=== PATIENT | male | born 1955 | race Hispanic/Latino ===

== ENCOUNTER 2017-12-19 13:39 | Inpatient (IN) | payer SELFPAY ==
[2017-12-19] MEDS ORDERED: D50W 25 GM/50 ML SYRINGE IV ONE ×5 (13:51→21:23)
[2017-12-19] MEDS ORDERED: D5 0.45 NS 1,000 ML IV ONE (14:03)
--- NOTE | 2017-12-19 14:50 | EKG ---
Test Date: 2017-12-19 Test Time: 14:02:51 Deputy Director Of Public Works: BAIRON MEASUREMENT RESULTS: Intervals: Rate: 98 WA: 174 QRSD: 132 QT: 396 QTc: 505 [place]: P: 62 WA: 174 QRS: 48 T: 46 INTERPRETIVE STATEMENTS: Normal sinus rhythm Right bundle branch block Abnormal ECG No previous ECG available for comparison Electronically Signed On 12-19-17 14:50:03 CDT by Virgil Landis
[2017-12-19 15:11] LABS: Absolute Lymphocytes (CBC) 0.9 K/uL (0.7-4.9); Absolute Monocytes 0.8 K/uL (0.1-1.3); Absolute Neutrophil 12.2 K/uL (1.8-8.0); Basophils % 0.2 % (0-1.3); Eosinophils % 0.1 % (0-4.4); Hematocrit 33.6 % (39.6-49.0); Lymphocytes % 6.6 % (15.3-44.8); MCH 28.4 pg (27.0-35.0); MCV 84.4 fL (80-100); MPV 11.4 fL (7.6-11.3); Monocytes % 5.4 % (3.3-12.3); RBC Red Blood Cell Count 3.98 M/uL (4.33-5.43)
[2017-12-19 15:28] LABS: Potassium 4.1 mmol/L (3.5-5.1)
[2017-12-19] MEDS ORDERED: ACETAMINOPHEN 500 MG TAB PO PRN (15:32)
[2017-12-19] MEDS ORDERED: ONDANSETRON 4 MG/2 ML VIAL IV PRN (15:32)
[2017-12-19] MEDS ORDERED: DEXTROSE 50% IV SCH (16:00)
[2017-12-19] MEDS ORDERED: D5 0.45 NS 1,000 ML IV SCH (16:00)
[2017-12-19] MEDS ORDERED: WATER IV SCH (16:00)
[2017-12-19] MEDS ORDERED: [UNRECOGNIZED DRUG - OTHER] IV SCH (16:00)
[2017-12-19] MEDS ORDERED: NA CHLORIDE IV SCH (16:00)
[2017-12-19] MEDS ORDERED: NA CHLORIDE 0.9% IV SCH (16:00)
[2017-12-19] MEDS ORDERED: NA CHLORIDE 0.9% 1,000 ML ONE (16:01)
--- NOTE | 2017-12-19 16:01 | EDPHYS ---
Physician Documentation [facility] Name: Leeroy Morrison Age: 62 yrs Sex: Male : 1955 Arrival Date: 12/19/2017 Time: 13:44 Bed 3 Private MD: Out, [facility] ED Physician Rory Nieves HPI: 12/19 16:05 This 62 yrs old Male presents to ER via Ambulatory with complaints of BLOOD gs SUGAR PROBLEM. 16:05 The patient or guardian reports hypoglycemia. Onset: The symptoms/episode gs began/occurred just prior to arrival. Associated signs and symptoms: Pertinent positives: nausea. Current symptoms: In the emergency department the patient's symptoms are unchanged from the initial presentation. The patient has not experienced similar symptoms in the past. The patient has not recently seen a physician. Historical: - Allergies: 13:55 No Known Allergies; hj - Home Meds: 13:55 lisinopril 10 mg Oral tab 1 tab once daily [Active]; glyburide-metformin 5-500 mg oral hj tab 1 tab 2 times per day [Active]; - PMHx: 13:55 Diabetes - NIDDM; Hypertension; hj - PSHx: 13:55 Unable to obtain; hj - Immunization history:: Adult Immunizations up to date. - Social history:: Patient/guardian denies using alcohol, street drugs, IV drugs, tobacco products, Smoking status: Patient/guardian denies using tobacco, never smoked. - Ebola Screening: : Patient negative for fever greater than or equal to 101.5 degrees Fahrenheit, and additional compatible Ebola Virus Disease symptoms Patient denies exposure to infectious person Patient denies travel to an Ebola-affected area in the 21 days before illness onset No symptoms or risks identified at this time. ROS: 16:05 All other systems are negative. gs Exam: 16:05 Head/Face: Normocephalic, atraumatic. Eyes: Pupils equal round and reactive to light, gs extra-ocular motions intact. Lids and lashes normal. Conjunctiva and sclera are non-icteric and not injected. Cornea within normal limits. Periorbital areas with no swelling, redness, or edema. 16:05 ENT: Nares patent. No nasal discharge, no septal abnormalities noted. Tympanic membranes are normal and external auditory canals are clear. Oropharynx with no redness, swelling, or masses, exudates, or evidence of obstruction, uvula midline. Mucous membranes moist. Neck: Trachea midline, no thyromegaly or masses palpated, and no cervical lymphadenopathy. Supple, full range of motion without nuchal rigidity, or vertebral point tenderness. No Meningismus. Chest/axilla: Normal chest wall appearance and motion. Nontender with no deformity. No lesions are appreciated. Cardiovascular: Regular rate and rhythm with a normal S1 and S2. No gallops, murmurs, or rubs. Normal PMI, no JVD. No pulse deficits. Respiratory: Lungs have equal breath sounds bilaterally, clear to auscultation and percussion. No rales, rhonchi or wheezes noted. No increased work of breathing, no retractions or nasal flaring. Abdomen/GI: Soft, non-tender, with normal bowel sounds. No distension or tympany. No guarding or rebound. No evidence of tenderness throughout. Back: No spinal tenderness. No costovertebral tenderness. Full range of motion. Skin: Warm, dry with normal turgor. Normal color with no rashes, no lesions, and no evidence of cellulitis. MS/ Extremity: Pulses equal, no cyanosis. Neurovascular intact. Full, normal range of motion. 16:05 Constitutional: The patient appears alert, awake. 16:05 Constitutional: The patient appears lethargic. 16:05 Neuro: Orientation: Not oriented to place, time, situation, Cranial nerves: CN II- XII are normal as tested, Motor: moves all fours. Vital Signs: 13:59 Pulse 97; Resp 16 S; Pulse Ox 98% on R/A; iw 15:21 BP 164 / 93; Pulse 102; Resp 18 S; Pulse Ox 98% on R/A; iw 15:22 BP 163 / 93 Sitting; Pulse 102; Resp 20; Pulse Ox 98% on R/A; ae1 16:11 BP 129 / 82 Sitting; Pulse 98 MON; Resp 20 S; Pulse Ox 99% on R/A; sm4 16:44 Temp 98(O); ae1 16:56 BP 128 / 77; Pulse 98 MON; Resp 20 S; Pulse Ox 99% on R/A; Pain 0/10; sm4 18:24 BP 152 / 89; Pulse 100; Resp 19; Pulse Ox 97% on R/A; aj 19:30 BP 139 / 92; Pulse 92; Resp 18; Temp 98.0; Pulse Ox 98% ; Pain 0/10; ea 20:00 BP 143 / 85; Pulse 97; Resp 18; Temp 97.6; Pulse Ox 98% ; Pain 0/10; ea MDM: 13:56 Patient medically screened. 16:05 Differential diagnosis: hypoglycemic episode, renal failure, dehydration, cva. Data reviewed: vital signs, nurses notes. Response to treatment: the patient's symptoms have markedly improved after treatment, and as a result, I will admit patient. 16:05 ED course: spoke to marley and dr jensen will see and admit. 12/19 13:57 Order name: Basic Metabolic Panel; Complete Time: 15:35 12/19 13:57 Order name: CBC with Diff; Complete Time: 15:18 12/19 13:57 Order name: Troponin (emerg Dept Use Only); Complete Time: 15:52 12/19 15:01 Order name: Glucose, Ancillary Testing; Complete Time: 15:18 [facility] 12/19 15:09 Order name: Glucose; Complete Time: 15:58 [facility] 12/19 15:11 Order name: Glucose, Ancillary Testing; Complete Time: 15:18 [facility] 12/19 15:11 Order name: Glucose, Ancillary Testing; Complete Time: 15:18 [facility] 12/19 16:04 Order name: Urine Creatinine 12/19 16:04 Order name: Urine Sodium Random 12/19 16:04 Order name: Urine Potassium Random 12/19 16:04 Order name: Urine For Protein, Random 12/19 16:39 Order name: Glucose [facility] 12/19 17:11 Order name: Glucose Level [facility] 12/19 20:57 Order name: Urine Dipstick--Ancillary (enter results) ut 12/19 13:57 Order name: EKG; Complete Time: 13:58 12/19 13:57 Order name: Cardiac monitoring; Complete Time: 14:14 12/19 13:57 Order name: EKG - Nurse/Tech; Complete Time: 14:14 12/19 13:57 Order name: IV Saline Lock; Complete Time: 14:14 12/19 13:57 Order name: Labs collected and sent; Complete Time: 19:10 12/19 13:57 Order name: O2 Per Protocol; Complete Time: 14:14 12/19 13:57 Order name: O2 Sat Monitoring; Complete Time: 14:14 12/19 14:07 Order name: Diet Ada 1800 Bobby; Complete Time: 14:07 12/19 16:04 Order name: US Rp Exam Complete 12/19 17:25 Order name: US EDMS 12/19 13:57 Order name: Urine Dipstick-Ancillary (obtain specimen) 12/19 14:07 Order name: Fingerstick Glucose: q 30 minutes Administered Medications: Discontinued: D5-NS 1000 ml IV at 125 ml/hr continuous 13:50 Drug: D50W 50 ml Route: IVP; Site: right jugular; iw 19:00 Follow up: Response: No adverse reaction ea 14:15 Drug: D5-NS 1000 ml Route: IV; Rate: 125 ml/hr; Site: left forearm; sm4 15:54 Drug: D10 in NS 1 per protocol Route: IV; Rate: 100 ml/hr; Site: left antecubital; ae1 16:43 Follow up: Per provider rated increased from 100ml/hr to 200ml/hr. ae1 20:30 Follow up: Response: No adverse reaction; IV Status: Infusion continued upon admission ea 20:31 Follow up: IV Status: Infusion continued upon admission aa1 16:00 Drug: NS 0.9% 1000 ml Route: IV; Rate: 1 bolus; Site: left antecubital; ae1 20:26 Follow up: Response: No adverse reaction; IV Status: Completed infusion ea 16:45 Drug: D50W 50 ml Route: IVP; Site: left forearm; sm4 20:26 Follow up: Response: No adverse reaction ea 18:29 Drug: D50W 50 ml Route: IVP; Site: left antecubital; aj 20:26 Follow up: Response: No adverse reaction; Blood sugar is elevated ea Point of Care Testing: Blood Glucose: 13:57 Blood Glucose: 20 mg/dL; hj 15:10 Blood Glucose: 114 mg/dL; jl7 16:41 Blood Glucose: 28 mg/dL; ae1 18:24 Blood Glucose: 33 mg/dL; aj 18:55 Blood Glucose: 79 mg/dL; aj 19:48 Blood Glucose: 150 mg/dL; ea 13:57 less than 20 hj Ranges: Critical Glucose Levels:Adult <50 mg/dl or >400 mg/dl <40 mg/dl or >180 mg/dl Disposition: 12/19/17 16:00 Hospitalization ordered by Smiley Jensen for Inpatient Admission. Preliminary diagnosis are Hypoglycemia, unspecified, Acute kidney failure. - Bed requested for Intensive Care Unit. - Status is Inpatient Admission. ea - Condition is Stable. - Problem is new. - Symptoms have improved. UTI on Admission? No Critical care time excluding procedures: 16:05 Critical care time: Bedside Care: 10 minutes, Consultation: 10 minutes, Family gs Intervention: 10 minutes. Total time: 30 minutes Signatures: Dispatcher [employer] EDMS Farida Jauregui Amanda, RN RN Shelly Medina RN RN All Mann, RN Huan Del Real, RN RN ae1 Mulu Gray RN Rory Valencia ea, MD MD gs McDonald, Sean RN RN sm4 Deisy Moore RN aa1 Corrections: (The following items were deleted from the chart) 17:57 16:00 Hospitalization Ordered by Smiley Jensen MD for Inpatient Admission. Preliminary bd diagnosis is Hypoglycemia, unspecified; Acute kidney failure. Bed requested for Intensive Care Unit. Status is Inpatient Admission. Condition is Stable. Problem is new. Symptoms have improved. UTI on Admission? No. gs 20:58 17:57 12/19/2017 16:00 Hospitalization Ordered by Smiley Jensen MD for Inpatient ea Admission. Preliminary diagnosis is Hypoglycemia, unspecified; Acute kidney failure. Bed requested for Intensive Care Unit. Status is Inpatient Admission. Condition is Stable. Problem is new. Symptoms have improved. UTI on Admission? No. bd
--- NOTE | 2017-12-19 16:01 | ER ---
Nurse's Notes [facility] Name: Leeroy Morrison Age: 62 yrs Sex: Male : 1955 Arrival Date: 12/19/2017 Time: 13:44 Bed 3 Private MD: Out, [facility] Diagnosis: Hypoglycemia, unspecified;Acute kidney failure Presentation: 12/19 13:53 Presenting complaint: Friend states: pt passed out [employer]. Transition of care: patient was iw not received from another setting of care. Onset of symptoms was December 19, 2017. Risk Assessment: Do you want to hurt yourself or someone else? Patient reports no desire to harm self or others. Initial Sepsis Screen: Does the patient meet any 2 criteria? No. Patient's initial sepsis screen is negative. Does the patient have a suspected source of infection? No. Patient's initial sepsis screen is negative. Care prior to arrival: None. 13:53 Method Of Arrival: Wheelchair iw 13:53 Acuity: PHILIP 2 iw 13:53 Presenting complaint: brother: pt passed out at work, hx of diabetes; A\\T\\Ox1 at triage;. hj Transition of care: patient was not received from another setting of care. Onset of symptoms was December 19, 2017. Risk Assessment: Do you want to hurt yourself or someone else? Patient reports no desire to harm self or others. Initial Sepsis Screen: Does the patient meet any 2 criteria? No. Patient's initial sepsis screen is negative. Does the patient have a suspected source of infection? No. Patient's initial sepsis screen is negative. Care prior to arrival: None. 13:53 Method Of Arrival: Ambulatory hj Triage Assessment: 13:55 General: Appears in no apparent distress. uncomfortable, ill, obese, Behavior is hj cooperative, appropriate for age, fussy. Pain: Denies pain. Historical: - Allergies: 13:55 No Known Allergies; hj - Home Meds: 13:55 lisinopril 10 mg Oral tab 1 tab once daily [Active]; glyburide-metformin 5-500 mg oral hj tab 1 tab 2 times per day [Active]; - PMHx: 13:55 Diabetes - NIDDM; Hypertension; hj - PSHx: 13:55 Unable to obtain; hj - Immunization history:: Adult Immunizations up to date. - Social history:: Patient/guardian denies using alcohol, street drugs, IV drugs, tobacco products, Smoking status: Patient/guardian denies using tobacco, never smoked. - Ebola Screening: : Patient negative for fever greater than or equal to 101.5 degrees Fahrenheit, and additional compatible Ebola Virus Disease symptoms Patient denies exposure to infectious person Patient denies travel to an Ebola-affected area in the 21 days before illness onset No symptoms or risks identified at this time. Screenin:17 Abuse screen: Denies threats or abuse. Nutritional screening: No deficits noted. sm4 Tuberculosis screening: No symptoms or risk factors identified. Fall Risk Secondary diagnosis (15 points) hypoglycemia. Sepsis Screening:. Assessment: 14:09 Reassessment: Dietary notified of diet order, asked to please bring tray LUZ ELENA. iw 14:16 General: Appears in no apparent distress. comfortable, obese, Behavior is calm, sm4 cooperative. Pain: Denies pain. Neuro: No deficits noted. Cardiovascular: No deficits noted. Respiratory: No deficits noted. GI: No deficits noted. : No deficits noted. EENT: No deficits noted. Derm: No deficits noted. Musculoskeletal: No deficits noted. 16:00 Reassessment: at bedside discussing plan of care. ae1 16:42 Reassessment: provider notified of low FSBS, new orders received. ae1 16:57 Reassessment: no change in pt cond at this time. a\\T\\o x 3 w/ resp even unlabored. skin sm4 warm dry and norm color. friend at bedside. no new c/o pain or discomfort. will cont to monitor. 18:30 General: Appears in no apparent distress. comfortable, Behavior is calm, cooperative, aj appropriate for age. Neuro: Level of Consciousness is awake, alert, obeys commands, Oriented to person, place, time, situation, Appropriate for age Reports dizziness, Blood sugar checked, order given for D50. Respiratory: Airway is patent Trachea midline Respiratory effort is even, unlabored, Respiratory pattern is regular, symmetrical. Derm: Skin is intact, is healthy with good turgor. 19:30 General: Appears in no apparent distress. comfortable, Behavior is calm, cooperative, ea appropriate for age. Pain: Denies pain. Neuro: Level of Consciousness is awake, alert, obeys commands, Oriented to person, place, time, situation. Cardiovascular: Heart tones S1 S2 present Patient's skin is warm and dry. Respiratory: Airway is patent Respiratory effort is even, unlabored, Respiratory pattern is regular, symmetrical, Breath sounds are clear bilaterally. GI: No signs and/or symptoms were reported involving the gastrointestinal system. : No signs and/or symptoms were reported regarding the genitourinary system. Derm: Skin is dry, Skin is normal, Skin temperature is warm. Musculoskeletal: Circulation, motion, and sensation intact. 19:42 Reassessment: Patient appears in no apparent distress at this time. Patient and/or aa1 family updated on plan of care and expected duration. Pain level reassessed. Patient is alert, oriented x 3, equal unlabored respirations, skin warm/dry/pink. Pt reports IV in R EJ is hurting and he would like it removed. IV dc'd per pt request. 20:19 Reassessment: Patient and/or family updated on plan of care and expected duration. Pain ea level reassessed. Patient is alert, oriented x 3, equal unlabored respirations, skin warm/dry/pink. Patient denies pain at this time. Patient states feeling better. 20:32 Reassessment: Patient appears in no apparent distress at this time. Patient is alert, aa1 oriented x 3, equal unlabored respirations, skin warm/dry/pink. Report given to Haleigh in ICU. Vital Signs: 13:59 Pulse 97; Resp 16 S; Pulse Ox 98% on R/A; iw 15:21 BP 164 / 93; Pulse 102; Resp 18 S; Pulse Ox 98% on R/A; iw 15:22 BP 163 / 93 Sitting; Pulse 102; Resp 20; Pulse Ox 98% on R/A; ae1 16:11 BP 129 / 82 Sitting; Pulse 98 MON; Resp 20 S; Pulse Ox 99% on R/A; sm4 16:44 Temp 98(O); ae1 16:56 BP 128 / 77; Pulse 98 MON; Resp 20 S; Pulse Ox 99% on R/A; Pain 0/10; sm4 18:24 BP 152 / 89; Pulse 100; Resp 19; Pulse Ox 97% on R/A; aj 19:30 BP 139 / 92; Pulse 92; Resp 18; Temp 98.0; Pulse Ox 98% ; Pain 0/10; ea 20:00 BP 143 / 85; Pulse 97; Resp 18; Temp 97.6; Pulse Ox 98% ; Pain 0/10; ea ED Course: 13:44 Patient arrived in ED. sb2 13:45 Out, of [facility] is Private Physician. sb2 13:48 Rory Nieves MD is Attending Physician. gs 13:53 Triage completed. iw 13:53 Inserted saline lock: 18 gauge in right EJ, using aseptic technique. IV inserted by Dr. femi Nieves. 13:55 Adrian Whitney, RN is Primary Nurse. sm4 13:55 Arm band placed on right wrist. hj 14:12 EKG done, by microfilm technician. reviewed by Rory Nieves MD. sm3 14:16 Inserted saline lock: 18 gauge in left forearm, using aseptic technique. sm4 14:19 No provider procedures requiring assistance completed. sm4 14:20 Patient has correct armband on for positive identification. Side rails up X2. Adult w/ sm4 patient. 15:34 Notified ED physician of a critical lab result(s). Creatinine 15. aj 15:59 Smiley Shin MD is Hospitalizing Provider. gs 16:52 Urine For Protein, Random Sent. sm4 16:53 US Rp Exam Complete Sent. sm4 16:53 Urine Potassium Random Sent. sm4 16:53 Urine Sodium Random Sent. sm4 16:53 Urine Creatinine Sent. sm4 16:53 Glucose Sent. sm4 18:30 Attempted to give report. Stefany stated "Are you kidding, we are about to have change of aj shift.". 19:42 IV discontinued, intact, bleeding controlled, No redness/swelling at site. to R EJ. aa1 Administered Medications: Discontinued: D5-NS 1000 ml IV at 125 ml/hr continuous 13:50 Drug: D50W 50 ml Route: IVP; Site: right jugular; iw 19:00 Follow up: Response: No adverse reaction ea 14:15 Drug: D5-NS 1000 ml Route: IV; Rate: 125 ml/hr; Site: left forearm; sm4 15:54 Drug: D10 in NS 1 per protocol Route: IV; Rate: 100 ml/hr; Site: left antecubital; ae1 16:43 Follow up: Per provider rated increased from 100ml/hr to 200ml/hr. ae1 20:30 Follow up: Response: No adverse reaction; IV Status: Infusion continued upon admission ea 20:31 Follow up: IV Status: Infusion continued upon admission aa1 16:00 Drug: NS 0.9% 1000 ml Route: IV; Rate: 1 bolus; Site: left antecubital; ae1 20:26 Follow up: Response: No adverse reaction; IV Status: Completed infusion ea 16:45 Drug: D50W 50 ml Route: IVP; Site: left forearm; sm4 20:26 Follow up: Response: No adverse reaction ea 18:29 Drug: D50W 50 ml Route: IVP; Site: left antecubital; aj 20:26 Follow up: Response: No adverse reaction; Blood sugar is elevated ea Point of Care Testing: Blood Glucose: 13:57 Blood Glucose: 20 mg/dL; hj 15:10 Blood Glucose: 114 mg/dL; jl7 16:41 Blood Glucose: 28 mg/dL; ae1 18:24 Blood Glucose: 33 mg/dL; aj 18:55 Blood Glucose: 79 mg/dL; aj 19:48 Blood Glucose: 150 mg/dL; ea 13:57 less than 20 hj Ranges: Intake: Outcome: 14:19 Condition: stable 4 16:00 Decision to Hospitalize by Provider. 20:58 Patient left the ED. ea Signatures: Deisy Moore RN RN aa1 Radha Avendano RN RN Shelly Medina RN RN iw All [place] RN RN Huan Esquivel RN RN ae1 Benigno Saucedo RN RN jl7 Mulu Gray RN RN Rory Samson MD MD Mita George2 Florina De La Cruz 3 Adrian Whitney RN RN sm4 Corrections: (The following items were deleted from the chart) 13:55 13:53 Acuity: PHILIP 3 hj iw 18:35 18:33 Attempted to give report. Stefany stated "Are you kidding, we are about to have aj change of shift." aj
--- NOTE | 2017-12-19 17:25 | RAD REPORT ---
EXAM DESCRIPTION: US - Renal Ultrasound-Complete - 12/19/2017 4:28 pm CLINICAL HISTORY: renal failure COMPARISON: No comparisons FINDINGS: Both kidneys are normal in echogenicity. Subtle areas of hyperechogenicity in the kidneys could represent prominent medullary fat or small stones. The right kidney measures 13 x 7 cm. No hydronephrosis identified. A large cyst is present measuring 12 x 10 cm. The left kidney measures 12 x 6 cm. No hydronephrosis. The urinary bladder is incompletely distended without gross abnormality seen. IMPRESSION: Large right renal cyst measuring 12 x 10 cm. No hydronephrosis. Normal renal echogenicity.
[2017-12-19 21:32] LABS: Urine Blood 1+ (NEG); Urine Glucose NEGATIVE (NEG); Urine Protein 2+ (NEG)
[2017-12-19] MEDS ORDERED: DEXTROSE 10%-WATER 500 ML IV SCH (21:45)
[2017-12-19] MEDS: ENOXAPARIN 30 MG/0.3 ML SQ SCH (22:31)
[2017-12-19] MEDS: D50W 25 GM/50 ML SYRINGE IV PRN (22:49)
[2017-12-20] MEDS: D50W 25 GM/50 ML SYRINGE IV PRN ×7 (00:15→12:33)
[2017-12-20] MEDS ORDERED: D50W 25 GM/50 ML SYRINGE IV ONE (00:27)
--- NOTE | 2017-12-20 01:34 | HP ---
Date of Admission: 12/19/2017 Chief Complaint: Low blood sugar, syncopal episode. Primary Care Physician: In [place]. History Of Present Illness: The patient is a 62-year-old male with past medical history of diabetes, hypertension, and hyperlipidemia, comes in after a syncopal episode at work. 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 The patient was down for only a few seconds and noticed people around him trying to wake him up. When EMS came, his blood sugar was in the 70s. He states that he did have breakfast and lunch today. The patient is a diabetic and not on insulin, did not take more than his usual dose. He is on glyburide and metformin while in the ER. His vital signs showed a blood pressure of 160/93, pulse of 102, respirations of 18, oxygen saturation 98%. His workup did reveal a glucose level of less than 25. He was given amp of D50, which improved his sugar levels and then rechecked, had refractory hypoglycemia with glucose level of less than 25 and was started on D10 NS. His white count was elevated at 13.9. His kidney function was 15.7. The patient states his kidney function 3 months ago was normal. The patient was then referred for admission. When seen in the ER, he was awake, alert, oriented x3, in some mild distress. Past Medical History: Diabetes mellitus type 2, non-insulin requiring; hypertension; and hyperlipidemia. Past Surgical History: Cholecystectomy 30 years ago. Allergies: NO KNOWN DRUG ALLERGIES. Medications: Metformin, glyburide, and lisinopril. Social History: The patient quit smoking several years ago. Has smoked heavily before that. The patient drinks beer and Tequila on occasion every 3 to 4 days, not a daily drinker. No illicit drug use. Works in construction. Family History: Mother had pancreatic issues. Father had colon cancer. Review of Systems: An 11-point system reviewed, negative except as per HPI. Physical Examination: Vital Signs: Pulse 97, respirations 16, O2 98%, blood pressure 164/93. General: Awake, alert, oriented x3, in some mild distress. Elderly male, ill- appearing. HEENT: Normocephalic, atraumatic. PERRLA. EOMI. Dry mucous membranes. Oropharynx is clear. Poor dentition. Conjunctivae anicteric. Neck: Supple. No JVD trachea midline. CV: S1, S2. Regular rate and rhythm. Peripheral pulses present. No murmurs. Respiratory: Clear to auscultation bilaterally. No wheezing. No stridor. No use of accessory muscles. Gastrointestinal: Abdomen is soft, nontender, nondistended. Positive bowel sounds. No guarding or rigidity. Extremities: No clubbing, cyanosis, or edema. No calf tenderness. Neuro: Cranial nerves 2 through 12 intact grossly. No focal neurological deficits. Speech is normal. Strength is 5/5 in bilateral upper and lower extremities. Sensation intact to light touch. Skin: No rashes. Normal skin turgor. Psych: Mood is okay. Affect is full. Insight and judgment are good. Laboratory Data: Sodium 133, potassium 4.1, chloride 95, CO2 18, BUN 114, creatinine 15.7, glucose 111. Initial glucose levels less than 25, repeat level 114, repeat after that was again less than 25 and then up to 124. Troponin less than 0.02, calcium 7.6. WBC 13.9, H and H 11.3 and 33.6, neutrophils 87.7%. UA is pending. EKG; sinus rhythm at 98 beats per minute, right bundle branch block. Assessment: A 62-year-old male with; 1. Syncopal episode due to hypoglycemia. 2. Refractory hypoglycemia. We will continue with D5 half NS. 3. Acute kidney injury. Dr. Peck has been consulted. We will obtain renal ultrasound and further workup. We will hydrate with IV fluids, may be prerenal versus acute on chronic. We will obtain previous labs. 4. Obesity. 5. Essential hypertension. Resume home medications as appropriate. Avoid CHARLIE inhibitors due to acute kidney injury. 6. Diabetes mellitus type 2; non-insulin requiring with hypoglycemia. We will continue Accu-Cheks every 2 hours x2 and then every 6 hours. 7. Hyperlipidemia, mixed. 8. Gastrointestinal and deep venous thrombosis prophylaxis with PPI and Lovenox renally dosed. 9. Right bundle branch block Plan: Admit the patient to Med-Surg, place as inpatient. LISS Voice ID: [id number]
[2017-12-20] MEDS ORDERED: D5 0.45 NS 1,000 ML IV SCH (02:00)
[2017-12-20] MEDS ORDERED: HYDROCODONE/APAP 10/325 TAB PO ONE (02:04)
[2017-12-20] MEDS: DEXTROSE 10%-WATER 500 ML IV SCH ×4 (02:32→22:30)
[2017-12-20 05:22] LABS: Absolute Lymphocytes (CBC) 1.7 K/uL (0.7-4.9); Absolute Monocytes 1.3 K/uL (0.1-1.3); Basophils % 0.3 % (0-1.3); Eosinophils % 0.3 % (0-4.4); MCH 29.6 pg (27.0-35.0); MCV 83.8 fL (80-100); MPV 10.9 fL (7.6-11.3); Monocytes % 10.5 % (3.3-12.3)
[2017-12-20] MEDS ORDERED: CALCIUM GLUC 10% INJ 4.65 MEQ in NA CHLORIDE 0.9% 100 ML IV ONE (05:57)
[2017-12-20 06:21] LABS: Albumin 2.9 g/dL (3.4-5.0); Bilirubin Direct 0.2 mg/dL (0-0.2); Bilirubin Total 0.4 mg/dL (0.2-1.0); Protein, Total 6.4 g/dL (6.4-8.2)
[2017-12-20] MEDS ORDERED: CALCIUM GLUCONATE 1 GM IVPB 1 GM/50 ML BAG IV ONE (06:25)
[2017-12-20] MEDS ORDERED: NA CHLORIDE 0.9% 1,000 ML IV ONE (11:02)
--- NOTE | 2017-12-20 14:50 | PN ---
Date of Progress Note: 12/20/2017 Subjective: The patient seen and examined. Chart reviewed and case discussed with RN. The patient transferred to ICU yesterday due to refractory hypoglycemia. The patient denies any symptoms. No li ghtheadedness or dizziness. Does report some nausea. Review of Systems: Negative except as above. Medications: List reviewed. Physical Examination: Vital Signs: Temperature 97.6, heart rate 82, blood pressure 97/84, respirations 14, O2 saturation 9 6% on room air. General: Awake, alert, oriented x3 in some mild distress. Elderly male, morbidly obese. CV: S1, S2. No murmurs. Regular rate and rhythm. Peripheral pulses present. Respiratory: Clear to auscultation bilaterally. No wheezing. No stridor. No use of accessory musc les. Gastrointestinal: Abdomen is soft, nontender, nondistended. Positive bowel sounds. No guarding or rigidity. Extremities: No clubbing, cyanosis, or edema. Neurologic: Nonfocal. Laboratory Data: Sodium 133, potassium 4, chloride 97, CO2 of 19, BUN 111, creatinine 15.5, glucose 60, calcium 6.8, albumin 2.9. Glucose was as low as less than 25. WBC 12.1, H and H 10.9 and 31, an d platelets 175. STEPHANIE screen pending. UA negative nitrite, negative leukocyte, random total protein was 21, urine random sodium 75, urine random potassium 15, urine creatinine 88. A renal ultrasound s hows large right renal cyst measuring 12 x 10 cm. No hydronephrosis. Normal renal echography. Assessment And Plan: 62-year-old male with syncopal episode due to hypoglycemia. No further episode s. 1.Refractory hypoglycemia. We will continue with D10. The patient did have a level less than 25 wh en D10 was stopped for calcium infusion. D10 was resumed. We will continue to monitor blood glucose levels every hour. 2.Acute kidney injury. Renal ultrasound shows cyst, otherwise normal kidneys. Nephrology on board. Continue with IV fluid hydration. We will obtain previous records. No change in creatinine. Cont inue monitor. Avoid NSAIDs. 3.Obesity, BMI 39. 4.Essential hypertension. The patient currently hypotensive. 5.Diabetes mellitus type 2, cvl-xzbteax-qsxuumxji with hypoglycemia. Monitor blood glucose levels q .1 hour. 6.Hyperlipidemia. 7.GI and deep venous thrombosis prophylaxis with PPI and Lovenox renally dosed. Plan: Continue monitoring in ICU setting. We will follow up with further workup. /LUCIA Voice ID: [id number] Report ID: [id number]
[2017-12-20] MEDS: ENOXAPARIN 30 MG/0.3 ML SQ SCH (17:41)
[2017-12-20] MEDS ORDERED: NA CHLORIDE 0.9% 1,000 ML IV SCH (21:00)
--- NOTE | 2017-12-21 02:02 | CON ---
Reason For Consultation: Elevated BUN and creatinine, fluid management. History Of Present Illness: This is a 62-year-old gentleman with significant past medical history of diabetes, hypertension, hyperlipidemia, diabetes complicated with neuropathy, no retinopathy. The patient was in his regular state of health, working in the field, then he had hypoglycemia and loss of consciousness, brought to the hospital, found to have for hypertension and tachycardic with fever, persistent hypoglycemia. Lab workup showed elevated leukocytosis and elevated BUN and creatinine, creatinine of 15, for that reason , we have been consulted. According to the patient, the patient has been on metformin for a while. Metformin has been decreased 3 months ago from 1000 b.i.d. to 500 b.i.d. The patient, according to him, a couple of months ago ____ lab tests and there is no mention for any kidney disease. The patient denied taking nonsteroidal. No IV contrast. No rash, no joint problem. Medications: Patient's only medication is the metformin and the lisinopril. Past Medical History: 1. Diabetes complicated with neuropathy, no retinopathy. 2. Hypertension. 3. Hyperlipidemia. Past Surgical History: Cholecystectomy. Allergies: NO KNOWN DRUG ALLERGY. Home Medications: Include, 1. Metformin. 2. Glyburide. 3. Lisinopril. Social History: Ex-smoker. Occasional alcohol. Denies drug abuse. Family History: Positive for diabetes and hypertension. Pancreatic cancer. Review of Systems: Head and Neck: No red eye. No ear pain. GI: No nausea. No vomiting. : No polyuria. No dysuria. No hematuria. [employer]: Not applicable. Respiratory: No shortness of breath. Cardiovascular: No leg swelling. No chest pain. Has syncope. Endocrine: No polydipsia. Skin: No rash. Neuro: Has syncope. Loss of conscious. Musculoskeletal: No joint pain. Physical Examination: General: When I saw the patient, the patient is lying in bed, comfortable, not in any distress. Vital Signs: Blood pressure 134/89, pulse of 88, afebrile. The patient is making very good urine. Over the night, had 1200 of urine output. Chest: Clear to auscultation. Heart: S1, S2. Systolic murmur. Abdomen: Soft, nontender. Extremities: Trace edema. Laboratory Data: WBC 12.1, H and H 10.9/31.0, platelets of 175. Sodium 133, potassium 4, bicarb 19, chloride 97, BUN 111, creatinine 15.5, GFR of 3. Calcium 6.8. Albumin 2.9. Corrected calcium is 7.5. Lab test on presentation ; sodium 133, potassium 4, bicarb 18, BUN 114, creatinine 15.7, calcium 7.6. Urinalysis; specific gravity 1.020, protein 120, creatinine 88, protein creatinine ratio 1.5. Medications: Current medications in the hospital include; 1. D10. 2. Tylenol. Imaging: Renal ultrasound showing normal-sized kidney 13 x 12, renal cyst of 12 cm. Assessment And Plan: Renal failure, looked to me it is more on a chronic side even though that the patient is saying that a few months ago, he has normal kidney function which is hard to believe with these numbers and non-improvement with gentle hydration. Supportive with mild acidosis and the persistent hypoglycemia. I going to give the patient benefit of the doubt. I am going to go ahead and send for full workup. I do not see a need for urgently initiating dialysis as the patient even though that the BUN is elevated but does not manifest any uremic symptoms or any over volume symptoms. For that reason, I am going to go ahead and bolus the patient with normal saline, then maintain him on 50 per hour. We will go ahead and send for full workup including the serology and I am going to request the record from his primary care for the lab that done a few months ago. I had a long discussion with the patient that if kidney function did not improve in the next 24 hours, the patient may need to be initiated on renal replacement therapy. BAILEY Voice ID: [id number] Report ID: [id number] JOSEP
--- NOTE | 2017-12-21 02:11 | CON ---
Continuation: Assessment And Plan: Renal failure looks to me more on the chronic with the progression of disease more than acute supported with the acidosis, and the hypoglycemia and the hypocalcemia which are manifest of secondary . Given that the patient is saying that his kidney function was normal a few months ago, I again gave the patient the benefit of doubt. 1. I am going to bolus the patient with normal saline and maintain him on 50 per hour. 2. We will request the record from his primary care. 3. We will send for full serology for the patient. 4. I had long discussion with the patient that if kidney function did not improve in the next 24 hours, the patient may need to initiate a renal replacement therapy given the high elevation in the BUN right now. 5. I agree with holding on the CHARLIE inhibitor and the metformin for the time being. 6. Hypertension, controlled, optimal. Keep holding CHARLIE inhibitor. We will monitor the patient. 7. Syncope as possible 2 nd to dehydration by primary. 8. Acidosis. High anion gap metabolic acidosis with contraction alkalosis. I again go ahead and bolus the patient with normal saline and place him on 50 per hour. 9. Hypoglycemia, mostly secondary to the renal failure and the oral medication given the degree of the renal failure. We will send for cortisol and we will continue on D10. 10. Anemia of chronic kidney disease with the presence of the proteinuria and renal failure, light chain disease need to be ruled out. Also iron deficiency anemia need to be ruled out. We will send for the workup. We will follow up. No need for LYNDON for the time being. 11. Diabetes as by primary. Keep holding all the blood sugar medication given the hypoglycemia. Case discussed with the patient, verbalized understanding. Discussed with Dr. Shin, agreed on the plan. REJI/LUCIA Voice ID: [id number] Report ID: [id number] JOSEP
[2017-12-21 05:43] LABS: Absolute Lymphocytes (CBC) 1.7 K/uL (0.7-4.9); Absolute Neutrophil 7.6 K/uL (1.8-8.0); Basophils % 0.4 % (0-1.3); Eosinophils % 1.1 % (0-4.4); Hematocrit 32.9 % (39.6-49.0); Lymphocytes % 15.9 % (15.3-44.8); MCH 29.7 pg (27.0-35.0); MCV 83.9 fL (80-100); MPV 10.8 fL (7.6-11.3); RBC Red Blood Cell Count 3.92 M/uL (4.33-5.43)
[2017-12-21 06:20] LABS: Albumin 2.8 g/dL (3.4-5.0); Phosphorus 6.8 mg/dL (2.5-4.9); Potassium 4.1 mmol/L (3.5-5.1)
[2017-12-21 06:56] LABS: Ferritin 294.9 ng/mL (26-388); Folic Acid, (Folate) 15.2 ng/mL (3.1-17.5); Thyroid Stimulating Hormone 0.28 uIU/mL (0.36-3.74)
[2017-12-21 07:29] LABS: Rheumatoid Factor NEG (NEG)
[2017-12-21] MEDS: DEXTROSE 10%-WATER 500 ML IV SCH (08:15)
[2017-12-21] MEDS ORDERED: D5W 1,000 ML IV SCH (12:00)
[2017-12-21] MEDS: CALCITROL 0.25 MCG CAP PO SCH (13:22)
[2017-12-21] MEDS ORDERED: GLUCAGON 1 MG/VIAL IM PRN (14:45)
[2017-12-21] MEDS ORDERED: D50W 25 GM/50 ML SYRINGE IV PRN (14:45)
[2017-12-21] MEDS: INSULIN -REGULAR HUMAN 50 UNIT/0.5 ML ML SQ SCH ×3 (15:06→21:00)
[2017-12-21] MEDS: NA CHLORIDE 0.9% 1,000 ML IV SCH (15:06)
--- NOTE | 2017-12-21 15:28 | PN ---
Date of Progress Note: 12/21/2017 Subjective: The patient is seen and examined. Chart reviewed and case discussed with RN and Dr. Jeremy fischer. The patient's blood sugars have improved. The patient denies any further syncopal episodes. No lightheadedness or dizziness. Review of Systems: Negative except as above. Medications: List reviewed. Physical Examination: Vital Signs: Temperature 97.6, heart rate 89, blood pressure 129/85, respirations 16, O2 97% on room air. General: Awake, alert, oriented x3. Not in any acute distress. Elderly male, obese, slightly ill a ppearing. CV: S1 and S2. No murmurs. Regular rate and rhythm. Peripheral pulses present. Respiratory: Moving air well bilaterally. No wheezing. Gastrointestinal: Abdomen is soft, nontender, nondistended. Positive bowel sounds. Extremities: No clubbing, cyanosis, or edema. Neurologic: Nonfocal. Laboratory Data: Sodium 132, potassium 4.1, chloride 97, CO2 20, BUN 100, creatinine 14, glucose 146 , calcium 6.9, phosphorus 6.8, iron 57, TIBC 273, transferrin 195, ferritin 294, albumin 2.8, vitamin B12 383, folate 15.2, TSH 0.28, PTH 364. WBC 10.5, H and H 11.6 and 32.9, platelets 184. Hepatitis panel pending. Rheumatoid factor negative. Others, immunology panel pending. Assessment And Plan: A 62-year-old male with: 1.Refractory hypoglycemia. We will continue with D10. Blood sugars improved. 2.Syncopal episode secondary to above. No further episodes. 3.Acute kidney injury. Possible acute on chronic kidney injury. Awaiting previous records. Apprec iate Dr. Peck's input. Continue with IV fluids. The patient may need to be started on dialysis. His BUN is severely elevated and does have hyperphosphatemia. 4.Hyperphosphatemia. 5.Obesity, BMI 39. 6.Hypocalcemia. 7.Essential hypertension. Currently blood pressure is on the low side. 8.Diabetes mellitus type 2 wdf-ncrsytj-cggnvhdbf with hypoglycemia. We will continue to monitor blo od sugar levels closely. No sliding scale insulin at this time. 9.Hyperlipidemia, mixed. 10.Gastrointestinal and deep venous thrombosis prophylaxis with PPI and Lovenox. 11.Plan is step-down out of ICU if okay with Nephrology. PT/OT eval and follow up on renal workup. 12.Metabolic acidosis. 13.Anemia of chronic disease with renal insufficiency. Workup does show some iron-deficiency. We w ill continue to monitor H and H. SA/MODL Voice ID: [id number] Report ID: [id number]
[2017-12-21] MEDS: CALCIUM CARBONATE CHEW 500MG TAB PO SCH (16:59)
[2017-12-21] MEDS: ENOXAPARIN 30 MG/0.3 ML SQ SCH (16:59)
--- NOTE | 2017-12-22 00:08 | PN ---
Date of Progress Note: 12/21/2017 History Of Present Illness: 1. Acute on chronic kidney injury, nonoliguric. The patient remains in ICU. He has nonoliguric urine output. He has Portillo catheter. Renal function has not improved significantly since yesterday. CHARLIE inhibitor is on hold because of severe azotemia, acute kidney injury. 2. Hypertension. Blood pressure has been controlled. 3. The patient was found to have hypoglycemia secondary to advanced chronic kidney disease and kidney failure. His hypoglycemia gradually is improving. Review of Systems: The patient denies complaints. Physical Examination: Lungs: Clear to auscultation bilaterally. Heart: S1, S2. Abdomen: Soft, benign. Extremities: Minimal edema. Laboratory Data: Hemoglobin 11.6, WBC 10.5, platelet count is 184,000. Sodium 132, potassium 4.1, chloride 97, CO2 of 20, BUN 100, creatinine 14, calcium 6.9 , phosphorus 6.8. Imaging: Renal ultrasound was done to assess kidney size and echotexture. The patient did not have hydronephrosis. Right kidney size is 13 cm in length and left kidney 12 cm in length. Both kidneys are normal in echogenicity. Impression And Plan: 1. Acute kidney injury on chronic kidney disease. The patient will continue IV fluids. Azotemia, slightly improved, although the patient has severe nonoliguric acute kidney injury. Currently, he does not have uremic symptomatology. Metabolic acidosis is controlled and potassium level remains within normal limits. 2. Hyperphosphatemia and hypocalcemia. Continue calcium binders with meals to control phosphorus level and check 25-OH vitamin D level to rule out vitamin D deficiency. 3. Anemia. Monitor hemoglobin level. Plan blood transfusion accordingly. 4. Hyperparathyroidism. PTH is 364. Plan is to advance binders to control hyperphosphatemia and start calcitriol. I spent total 36 min including 26 min to coordinate care plan. STACEY/LUCIA Voice ID: [id number] Report ID: [id number] JOSEP
[2017-12-22] MEDS: NA CHLORIDE 0.9% 1,000 ML IV SCH ×3 (03:51→21:58)
[2017-12-22 05:13] LABS: Absolute Neutrophil 7.1 K/uL (1.8-8.0); Basophils % 0.6 % (0-1.3); Eosinophils % 2.4 % (0-4.4); Hematocrit 37.1 % (39.6-49.0); Lymphocytes % 18.8 % (15.3-44.8); MCH 29.2 pg (27.0-35.0); MCV 84.6 fL (80-100); MPV 11.1 fL (7.6-11.3); Monocytes % 9.6 % (3.3-12.3); RBC Red Blood Cell Count 4.39 M/uL (4.33-5.43)
[2017-12-22 05:31] LABS: Albumin 3.1 g/dL (3.4-5.0); Phosphorus 6.6 mg/dL (2.5-4.9); Potassium 4.4 mmol/L (3.5-5.1)
[2017-12-22] MEDS: INSULIN -REGULAR HUMAN 50 UNIT/0.5 ML ML SQ SCH ×4 (07:30→21:58)
[2017-12-22] MEDS: CALCIUM CARBONATE CHEW 500MG TAB PO SCH ×3 (09:00→15:51)
--- NOTE | 2017-12-22 12:28 | PN ---
Date of Progress Note: 12/22/2017 Subjective: The patient seen and examined, chart reviewed, and case discussed with RN. The patient is in ICU for overflow, was stepped down yesterday. The patient feels significantly better. No acute events overnight. Review of Systems: Negative except as above. Medications: List reviewed. Objective: Vital Signs: Temperature 98.5, heart rate 94, blood pressure 136/90 , respirations 15, and O2 97% on room air. General: Awake, alert, oriented x3, not in acute distress. Elderly male, obese , BMI 39. CV: S1, S2. No murmurs. Respiratory: Moving air well bilaterally. Gastrointestinal: Abdomen is soft, nontender, nondistended. Positive bowel sounds. Extremities: No clubbing, cyanosis. Trace edema. Neurologic: Nonfocal. Laboratory Data: Sodium 138, potassium 4.4, chloride 104, CO2 22, BUN 99, creatinine 11.6, glucose 156, calcium 7.7, and phosphorus 6.6. WBC 10.4, H and H 12.8 and 37, and platelets 197. Assessment: A 62-year-old male with; 1. Refractory hypoglycemia improved, off D5. We will continue to monitor blood sugar levels. 2. Syncopal episode secondary to above. No further episodes. 3. Acute kidney injury. Creatinine improving. We will continue with IV fluids. Appreciate Nephrology input. May need to be on dialysis if continues to have electrolyte abnormalities. 4. Hyperphosphatemia. 5. Obesity, body mass index 39. 6. Hypocalcemia. 7. Essential hypertension, currently hypotensive. We will continue to monitor blood pressure. Continue with IV fluids. 8. Diabetes mellitus type 2, htu-pbdsmmq-oyukalvhl with hypoglycemia, now blood sugar levels have improved. We will cover with sliding scale. 9. Hyperlipidemia. 10. Next metabolic acidosis. 11. Anemia of chronic disease with renal insufficiency. Monitor H and H. 12. Gastrointestinal and deep venous thrombosis prophylaxis with PPI and Lovenox. 13. Right bundle branch block Plan: Continue PT evaluation. Mobilize the patient. Monitor kidney function. SA/MODL Voice ID: [id number] Report ID: [id number] MTDD
[2017-12-22 13:04] LABS: C-Peptide 41.15 ng/mL (0.80-3.85)
[2017-12-22] MEDS ORDERED: NA CHLORIDE 0.9% 500 ML IV ONE (18:28)
[2017-12-22] MEDS: ENOXAPARIN 30 MG/0.3 ML SQ SCH (18:48)
--- NOTE | 2017-12-23 00:35 | PN ---
Date of Progress Note: 12/22/2017 Subjective: The patient has no nausea, no vomiting, no shortness of breath. The patient had good ur ine output. We will obtain his lab from primary care. His creatinine back in March 2017 was 0.9, normal GFR. Physical Examination: Vital Signs: Blood pressure 185/92, pulse of 93, afebrile. The patient had urine output of 6 L. Chest: Clear to auscultation. Heart: S1, S2. Regular. Abdomen: Soft nontender. Extremities: No edema. Laboratory Data: WBC 10.4, H and H of 12.8/37.1. Sodium 138, potassium 4.4, bicarb 22, BUN down to 99, creatinine down to 11, calcium 7.7, phosphorus 6.6, albumin 3.1. PTH elevated. SPEP is still pe nding. Serology STEPHANIE was negative. The rest of the serology is still pending. Medications: Current medications the patient on include; 1.Lovenox. 2.Calcium carbonate with each meal 1 g. 3.Tylenol. 4.Zofran. 5.Calcitriol 0.25 every 48 hours. Assessment And Plan: 1.Acute kidney injury, normal-sized kidney, unknown etiology, possible prerenal, secondary to dehydr ation. Still giving these acute and his kidney function was completely normal before, I going to con tinue hydration. We will follow up serology. If kidney function did not improve after hydration, th e patient will need biopsy, so I will bolus him with 500 of normal statin and we will follow up. 2.Hypertension, uncontrolled. Add carvedilol and Norvasc, and we will follow up. 3.Proteinuria, nonnephrotic. We will follow up serology. 4.Diabetes as by primary. Keep holding metformin. MA/MODL Voice ID: [id number] Report ID: [id number]
[2017-12-23 03:02] LABS: Anti-Cardiolipin IgA Antibody <11 APL (<=11)
[2017-12-23 05:10] LABS: Absolute Lymphocytes (CBC) 1.9 K/uL (0.7-4.9); Absolute Monocytes 0.9 K/uL (0.1-1.3); Absolute Neutrophil 6.7 K/uL (1.8-8.0); Basophils % 0.5 % (0-1.3); Eosinophils % 3.9 % (0-4.4); Hematocrit 33.3 % (39.6-49.0); Lymphocytes % 18.9 % (15.3-44.8); MCH 29.3 pg (27.0-35.0); MCV 84.8 fL (80-100); MPV 10.8 fL (7.6-11.3); Monocytes % 9.5 % (3.3-12.3); RBC Red Blood Cell Count 3.93 M/uL (4.33-5.43)
[2017-12-23 05:35] LABS: Albumin 2.9 g/dL (3.4-5.0); Phosphorus 4.7 mg/dL (2.5-4.9); Potassium 4.1 mmol/L (3.5-5.1)
[2017-12-23] MEDS: NA CHLORIDE 0.9% 1,000 ML IV SCH ×2 (05:51→17:00)
[2017-12-23] MEDS: INSULIN -REGULAR HUMAN 50 UNIT/0.5 ML ML SQ SCH ×4 (07:30→20:27)
[2017-12-23] MEDS: CALCIUM CARBONATE CHEW 500MG TAB PO SCH ×3 (09:34→17:13)
[2017-12-23] MEDS: CARVEDILOL 6.25 MG TAB PO SCH ×2 (09:35→20:26)
[2017-12-23] MEDS: AMLODIPINE 10 MG TAB PO SCH (09:35)
--- NOTE | 2017-12-23 11:30 | P.PN ---
Subjective Date of Service: 12/23/17 Chief Complaint: Renal failure Subjective: Improving (Patient is improving he denies any complaints currently on IV fluids) Review of Systems Unremarkable Physical Examination - Vital Signs Temperature: 98.9 F Blood Pressure: 137/80 Pulse: 72 Respirations: 17 Pulse Ox (%): 98 - Physical Exam General: Alert, Oriented x3 Respiratory: Clear to auscultation bilaterally Cardiovascular: No edema, Regular rate/rhythm Gastrointestinal: Normal bowel sounds, Soft and benign Assessment & Plan - Problems (Diagnosis) (1) Acute renal failure Current Visit: Yes Status: Acute Plan: Patient is 62 years of age admitted with acute renal failurer no prior history denies taking nonsteroidals patient's kidney function is improving continue with supportive therapy seen by Nephrology patient has are right large renal cyst
[2017-12-23] MEDS: CALCITROL 0.25 MCG CAP PO SCH (12:14)
[2017-12-23] MEDS ORDERED: NA CHLORIDE 0.9% 1,000 ML IV ONE (13:19)
[2017-12-23 15:30] LABS: HIV 1/2 Antibody Diff Not indicated.; HIV AG/AB 4TH GEN Non-reactive (Non-reactive)
[2017-12-23 15:58] LABS: Hepatitis C Virus RNA (PCR)log <1.18 log IU/mL
[2017-12-23] MEDS ORDERED: POLYETHYL GLY 3350 17 GM/DOSE PO ONE (16:49)
[2017-12-23] MEDS: ENOXAPARIN 30 MG/0.3 ML SQ SCH (17:22)
[2017-12-23] MEDS: POLYETHYL GLY 3350 17 GM/DOSE PO PRN (17:22)
--- NOTE | 2017-12-24 02:31 | PN ---
Date of Progress Note: 12/23/2017 Subjective: The patient is doing better. No nausea. No vomiting. Last night, we bolused the patie nt. The patient tolerated well, feeling better. Physical Examination: Vital Signs: When I saw the patient, blood pressure 147/92, pulse of 77, afebrile. Chest: Clear to auscultation. Heart: S1, S2. Regular. Abdomen: Soft, nontender. Extremities: No edema. Laboratory Data: H and H 11.5/33.3, sodium 142, potassium 4.1, bicarb 25, BUN 75, creatinine 7.2, ca lcium 8.1, phosphorus 4.7, albumin 2.2. Medications: Current medications the patient is on include: 1.Lovenox. 2.Carvedilol. 3.Norvasc. 4.Tylenol. 5.Zofran. 6.IV fluid. Assessment And Plan: 1.Acute kidney injury secondary to prerenal. STEPHANIE negative. Complement within normal limit. Hepatit is panel was assessed. Mostly it is secondary to prerenal. We are going to continue hydrating the p atient. We will bolus the patient again with another liter. If the kidney function continue to impr ove, the patient may be able to be discharged tomorrow. 2.Hypertension, controlled, optimal continue current medication. 3.Acidosis, secondary to IV fluid. We will continue to monitor. 4.Iron deficiency anemia. The patient will be started on IV iron. BAILEY Voice ID: [id number] Report ID: [id number]
[2017-12-24 02:49] LABS: HBsAG Nonreactive (Nonreactive)
[2017-12-24] MEDS: NA CHLORIDE 0.9% 1,000 ML IV SCH ×3 (03:53→21:48)
[2017-12-24 05:08] LABS: Albumin 3.2 g/dL (3.4-5.0); Phosphorus 3.6 mg/dL (2.5-4.9); Potassium 4.3 mmol/L (3.5-5.1)
[2017-12-24] MEDS: INSULIN -REGULAR HUMAN 50 UNIT/0.5 ML ML SQ SCH ×4 (07:30→21:47)
[2017-12-24] MEDS: AMLODIPINE 10 MG TAB PO SCH (09:24)
[2017-12-24] MEDS: CARVEDILOL 6.25 MG TAB PO SCH ×2 (09:24→21:45)
[2017-12-24] MEDS: CALCIUM CARBONATE CHEW 500MG TAB PO SCH ×3 (09:24→18:00)
[2017-12-24] MEDS ORDERED: GLUCAGON 1 MG/VIAL IM PRN (09:56)
[2017-12-24] MEDS ORDERED: D50W 25 GM/50 ML SYRINGE IV PRN (09:56)
--- NOTE | 2017-12-24 10:01 | P.PN ---
Subjective Date of Service: 12/24/17 Chief Complaint: Renal failure Subjective: Improving (Patient is doing much better kidney function is improving hyperglycemic) Review of Systems Unremarkable Physical Examination - Vital Signs Temperature: 98.1 F Blood Pressure: 148/86 Pulse: 81 Respirations: 20 Pulse Ox (%): 96 - Physical Exam General: Alert, Oriented x3 Respiratory: Clear to auscultation bilaterally Cardiovascular: No edema, Normal S1 S2 Assessment & Plan - Problems (Diagnosis) (1) Acute renal failure Current Visit: Yes Status: Acute Plan: Patient's renal function is improving continue with IV fluid Qualifiers: Acute renal failure type: unspecified Qualified Code(s): N17.9 - Acute kidney failure, unspecified (2) Diabetes Current Visit: Yes Status: Acute Plan: Patient is a diabetic sulfanylureas an metformin is contraindicated. Patient has been started on insulin dose needs to be adjusted diabetic education possible discharge tomorrow
--- NOTE | 2017-12-24 16:26 | PN ---
Date of Progress Note: 12/24/2017 NEPHROLOGY FOLLOWUP NOTE Subjective: The patient doing well. No nausea. No vomiting. No shortness of breath. The patient was admitted with acute kidney injury, recovering very well. Did not require any dialysis. Physical Examination: Vital Signs: Blood pressure 148/86, pulse of 81. Afebrile. The patient had good urine output of 61 00. Chest: Clear to auscultation. Heart: S1, S2. Regular. Abdomen: Soft, nontender. Extremity: No edema. Neuro: No tremor. Laboratory Data: WBC 10, H and H 11.5/33.3, platelet 214. Sodium 144, potassium 4.3, bicarb 24, BUN 52, creatinine 4, GFR up to 15, calcium 8.2, phosphorus 3.6, albumin 3.2. SPEP is still pending. P rotein creatinine 1. Serology; STEPHANIE was negative, complement within normal limits. Rheumatoid arthri tis within normal limit. Pending ANCA and cardiolipin. Hepatitis panel, hep B was negative. Hep C, and HIV were negative. Renal ultrasound; normal sized kidney. Current Medication: 1.Include IV fluid at 100 per hour. The patient received bolus yesterday of normal saline. 2.Carvedilol. 3.Amlodipine. 4.Lovenox. 5.Insulin. Assessment And Plan: 1.Acute kidney injury secondary to prerenal, nonoliguric. No hyperkalemia. Normal size kidney. Pr oteinuric, nonnephrotic secondary to prerenal superimposed with metformin and CHARLIE inhibitor, recovere d, resolved, continue to trend down. Nonoliguric. I do not see any need for any renal replacement t herapy. The patient may be discharged to follow up in the office in 2-3 weeks. 2.Hyperkalemia, resolved. 3.Hypertension, controlled, optimal, keep holding CHARLIE inhibitor. 4.Diabetes with acute kidney injury and elevated creatinine. I agreed with keep holding the metform in. Okay for a glimepiride or glipizide. REJI/LUCIA Voice ID: [id number] Report ID: [id number]
[2017-12-24] MEDS: INSULIN DETEMIR 100 UNIT/1 ML INSULIN SQ SCH (17:00)
[2017-12-24] MEDS: ENOXAPARIN 30 MG/0.3 ML SQ SCH (18:00)
[2017-12-24 19:23] LABS: P-ANCA Anti-Myeloperoxidase Ab <1.0 AI (<1.0)
[2017-12-25 05:33] LABS: Albumin 2.8 g/dL (3.4-5.0); Phosphorus 3.6 mg/dL (2.5-4.9)
[2017-12-25] MEDS: NA CHLORIDE 0.9% 1,000 ML IV SCH (07:24)
[2017-12-25] MEDS: INSULIN -REGULAR HUMAN 50 UNIT/0.5 ML ML SQ SCH ×2 (07:30→11:30)
[2017-12-25] MEDS: POLYETHYL GLY 3350 17 GM/DOSE PO PRN (08:43)
[2017-12-25] MEDS: CALCIUM CARBONATE CHEW 500MG TAB PO SCH ×2 (08:43→11:58)
[2017-12-25] MEDS: INSULIN DETEMIR 100 UNIT/1 ML INSULIN SQ SCH (08:43)
[2017-12-25] MEDS: CARVEDILOL 6.25 MG TAB PO SCH (08:44)
[2017-12-25] MEDS: AMLODIPINE 10 MG TAB PO SCH (08:44)
[2017-12-25 10:29] LABS: Potassium 4.4 mmol/L (3.5-5.1)
[2017-12-25] MEDS: CALCITROL 0.25 MCG CAP PO SCH (11:58)
--- NOTE | 2017-12-25 17:26 | DS ---
Consultants: Dr. Peck with nephrology. Admitting Diagnoses: 1.Acute kidney injury. 2.Syncopal episode due to hypoglycemia. 3.Refractory hypoglycemia. 4.Obesity. 5.Essential hypertension. 6.Diabetes mellitus type 2, non-insulin requiring with hypoglycemia. 7.Hyperlipidemia, mixed. Discharge Diagnoses: 1.Syncopal episode secondary to hypoglycemia. 2.Refractory hypoglycemia, resolved, secondary to metformin and acute kidney injury. 3.Acute kidney injury, improving. 4.Hyperphosphatemia, resolved. 5.Obesity. Body mass index 39. 6.Hypocalcemia, improving. 7.Essential hypertension, stable. 8.Diabetes mellitus type 2, non-insulin requiring with hypoglycemia. 9.Hyperlipidemia, mixed. 10.Metabolic acidosis. 11.Anemia of chronic disease with renal insufficiency. Hospital Course: The patient is a 62-year-old male, who comes in with syncopal episode most likely s econdary to hypoglycemia. The patient had refractory hypoglycemia despite treatment in the ER, was p laced on D10. He was also found to have an elevated creatinine of 15.7, with kidney function normal 3 months ago. He was started on IV fluids. Nephrology was consulted. The patient did have multiple electrolyte abnormalities. He did not require dialysis. The patient was continued on D10 drip and was then switched over to D5. This was thought to be due to his hypoglycemic medication in the setti ng of kidney dysfunction. The patient's medications were adjusted. His kidney function improved wit h hydration and treatment and came down to 2.6 from 15 and was then cleared from nephrology standpoin t. His white count normalized. The patient's immunology and serology workup were completed to rule out other causes of kidney injury. The patient overall did well. He was unable to ambulate or have any further syncopal episodes. He was counseled on his obesity. The patient was then discharged charles in a stable condition. Activity: As tolerated. Medications: As per medication reconciliation list. We will discontinue metformin and lisinopril. Discharge Instructions: Return to ER for worsening condition. Followup: Follow up with primary care physician in 2-3 days. Follow up with director toxicology, Dr. Maykel morataya in 2 weeks. Diet: Renal, diabetic diet. Physical Examination: General: Awake, alert, oriented x3, not in any acute distress. CV: S1, S2. No murmurs. Respiratory: Moving air well bilaterally Gastrointestinal: Abdomen is soft, nontender, nondistended . Positive bowel sounds. Extremities: No clubbing, cyanosis, or edema. Neurologic: Nonfocal. Total time spent discharging the patient was 35 minutes. LISS Voice ID: [id number] Report ID: [id number]
--- NOTE | 2017-12-25 23:00 | PN ---
Date of Progress Note: 12/25/2017 Chief Complaint: Acute kidney injury, severe, nonoliguric, associated with acute tubular necrosis. Subjective: Workup is pending for vasculitis. Renal function is improving. Renal ultrasound did no t show hydronephrosis. There is normal kidney size. Proteinuria is nonnephrotic. Acute kidney inju ry is secondary to prerenal azotemia and acute tubular necrosis. Review of Systems: Denies fever or chills. Physical Examination: Lungs: Clear to auscultation bilaterally. Heart: S1, S2. Abdomen: Soft, benign. Extremities: Slight edema. Laboratory Data: Sodium 144, potassium 4.3, bicarbonate 24, BUN 52, creatinine 4.0, calcium 8.2, alb umin 3.2. Hemoglobin 11.5, WBC 10.0, platelet count is 214,000. Sodium 143, potassium 4.4, chloride is 109, CO2 of 28, BUN 30, creatinine 2.60, glucose 243. Impression And Plan: 1.Acute kidney injury, secondary to severe prerenal azotemia, acute tubular necrosis. The patient r esponded to IV fluids. 2.Hyperkalemia, resolved. 3.Hypertension. Blood pressure controlled. 4.Hypoalbuminemia. Increase p.o. protein intake. Pending workup for proteinuria. The patient will need to follow up [facility] as outpatient. The patient may need biopsy if proteinuria does not improve and is not controlled with conservative measures. In the future, the patient may be a candidate for CHARLIE inhibitor when renal function improves to baseline. STACEY/LUCIA Voice ID: [id number] Report ID: [id number]
[2017-12-26 18:42] LABS: Albumin, (SPE) 2.9 g/dL (3.8-4.8); Alpha-1-Globulins 0.4 g/dL (0.2-0.3); INTERPRETATION REPORT
== END 2017-12-25 13:47 | disposition home or self-care (01) | DRG 683 ==
LOC: ER 13:39 → ERHOLD 16:00 → 3RD-ICU 20:32 → 2ND 12-22 16:20
PROVIDERS: ADMIT Family Medicine; ATTEND Family Medicine
DX: N17.9 Acute kidney failure, unspecified (principal); E87.2 Acidosis; E11.649 Type 2 diabetes mellitus with hypoglycemia without coma; Z79.84 Long term (current) use of oral hypoglycemic drugs; I10 Essential (primary) hypertension; Z87.891 Personal history of nicotine dependence; E66.9 Obesity, unspecified; E78.2 Mixed hyperlipidemia; I45.10 Unspecified right bundle-branch block; E11.21 Type 2 diabetes mellitus with diabetic nephropathy; E86.0 Dehydration; Z68.39 Body mass index [BMI] 39.0-39.9, adult; E11.40 Type 2 diabetes mellitus with diabetic neuropathy, unspecified; N28.1 Cyst of kidney, acquired; D63.1 Anemia in chronic kidney disease; E83.39 Other disorders of phosphorus metabolism; E83.51 Hypocalcemia; D50.9 Iron deficiency anemia, unspecified; E11.65 Type 2 diabetes mellitus with hyperglycemia; T38.3X5A Adverse effect of insulin and oral hypoglycemic [antidiabetic] drugs, initial encounter
CPT/HCPCS: 36415; 76770; 80048; 80069; 80076; 81003; 82533; 82570; 82607; 82728; 82746; 82947; 82962; 83520; 83525; 83540; 83970; 84132; 84156; 84165; 84300; 84443; 84466; 84484; 84681; 85025; 85044; 86021; 86038; 86147; 86160; 86225; 86317; 86430; 86704; 87340; 87389; 87522; 93005; 94760; 97163; 99284; J0610; J1650; J7030